=== PATIENT | female | born 1995 | race Caucasian/White ===

== ENCOUNTER 2019-10-31 10:57 | Day surgery (SDC) | payer OTHER ==
[2019-10-31] MEDS ORDERED: hydrALAZINE 20 MG/ML VIAL SLOW IVP PRN (11:11)
[2019-10-31 11:41] VITALS: BMI 33.4
[2019-10-31 12:38] LABS: #Basophils 0.1 thou/uL (0.0-0.2); #Lymphocytes 1.7 thou/uL (1.20-3.40); #Monocytes 0.3 thou/uL (0.11-0.59); #Neutrophils 5.6 thou/uL (1.40-6.50); %Basophils 0.8 % (0.0-1.0); %Eosinophils 0.5 % (0.0-10.0); %Lymphocytes 22.4 % (21.0-51.0); %Monocytes 4.2 % (0.0-10.0); %Neutrophils 72.1 % (42.0-75.0); Hemoglobin 12.4 g/dL (12.0-16.0); Mean Corpuscular HGB CONC 34.3 g/dL (32.0-36.0); Mean Corpuscular Hemoglobin 30.8 pg (27.0-31.0); Mean Corpuscular Volume 89.7 fL (78.0-98.0); Mean Platelet Volume 7.8 fL (7.4-10.4); Platelet Count 188 thou/uL (130-400); RBC Distribution Width 12.1 % (11.5-14.5); Red Blood Cell (RBC) Count 4.05 mill/uL (4.20-5.40); White Blood Cell (WBC) Count 7.7 thou/uL (4.8-10.8)
[2019-10-31 12:59] LABS: ALT (SGPT) 11 U/L (8-55); AST (SGOT) 13 U/L (5-34); Albumin 3.1 g/dL (3.5-5.0); Alkaline Phosphatase 113 U/L (40-110); Anion Gap 13 mmol/L (10-20); BUN (Urea Nitrogen) 7 mg/dL (7.0-18.7); Bilirubin, Total Less than 0.2 mg/dL (0.2-1.2); Calc. Creatinine Clearance 191 mL/min (70-130); Calcium 8.5 mg/dL (7.8-10.44); Carbon Dioxide 22 mmol/L (22-29); Chloride 106 mmol/L (98-107); Estimated GFR-MDRD Greater than 90; Globulin 2.8 g/dL (2.4-3.5); Glucose 130 mg/dL (70-105); Potassium 3.7 mmol/L (3.5-5.1); Protein, Total 5.9 g/dL (6.0-8.3); Sodium 137 mmol/L (136-145)
--- NOTE | 2019-10-31 13:25 | PDOC.LDHP ---
Labor and Delivery H&P Chief complaint: other HPI: Sent from office for blood pressure observations. She reports having elevated bps all day yesterday, but did not come to the ER. she also had a headache yesterday but does not have one now. Current gestational age (weeks): 38 Due date: 11/12/19 Dating criteria: last menstrual period Grav: 1 Para: 0 Current complications: other Current medications: pre- vitamins Allergies/Adverse Reactions: Allergies Allergy/AdvReac Type Severity Reaction Status Date / Time No Known Allergies Allergy Unverified 10/31/19 11:34 Social history: none - Physical Exam Vital signs reviewed and normal: yes General: NAD, resting Lungs: nonlabored breathing Abdomen: gravid FHT: category 1 - Vaginal Exam cm dilated: 1 Effacement: 75% Station: -3 - OB Labs Additional Labs: Laboratory Tests 10/31/19 10/31/19 12:21 12:21 WBC 7.7 RBC 4.05 L Hgb 12.4 Hct 36.3 Plt Count 188 Creatinine 0.71 AST 13 ALT 11 Alkaline Phosphatase 113 H Serum Total Protein 5.9 L Albumin 3.1 L Globulin 2.8 Albumin/Globulin Ratio 1.1 L - Assessment at 38weeks 2 days r/o GHTN and Preelampsia - Plan -: Normotensive Normal lab values Discharge home today. BP follow up early next week. ANALI visit on Sunday.
[2019-10-31 13:29] LABS: Creatinine, Urine 133.95 mg/dL (47-110)
[2019-11-01] MEDS ORDERED: FLU VACC QS2019-20(6MOS UP)/PF 60 MCG/0.5 ML SYRINGE IM ONE (12:00)
== END 2019-10-31 13:30 | disposition home or self-care (01) ==
LOC: L&D/OP 10:57
PROVIDERS: ATTEND Student in an Organized Health Care Education/Training Program
DX: O99.89 Other specified diseases and conditions complicating pregnancy, childbirth and the puerperium (principal); R03.0 Elevated blood-pressure reading, without diagnosis of hypertension; Z3A.38 38 weeks gestation of pregnancy; Z79.899 Other long term (current) drug therapy
CPT/HCPCS: 36415; 80053; 82570; 84156; 85025; 99283

== ENCOUNTER 2019-11-11 13:41 | Inpatient (IN) | payer OTHER, MEDICAID ==
[~2019-11-11 13:41] MED LIST: Bupivacaine 0.25% HCL 30 ML VIAL ONE
[2019-11-11] MEDS ORDERED: Ondansetron PF 4 MG/2 ML Vial IVP PRN (22:19)
[2019-11-11] MEDS ORDERED: Promethazine HCl 25 MG/ML VIAL IM PRN (22:19)
[2019-11-11] MEDS ORDERED: Ibuprofen 800 MG TAB PO PRN (22:19)
[2019-11-11] MEDS ORDERED: Misoprostol 200 MCG TAB PR PRN (22:19)
[2019-11-11] MEDS ORDERED: NS / Oxytocin 40 units/1000ml 1,000 ML IV PRN (22:19)
[2019-11-11] MEDS ORDERED: hydrALAZINE 20 MG/ML VIAL SLOW IVP PRN (22:19)
[2019-11-11] MEDS ORDERED: HYDROcodone/Acetaminophen 5/325 mg Tablet PO PRN ×2 (22:19)
[2019-11-11] MEDS ORDERED: Lidocaine 1% (PF) 30 ML VIAL SC PRN (22:19)
[2019-11-11] MEDS ORDERED: Methylergonovine 0.2 MG/ML VIAL IM PRN (22:19)
--- NOTE | 2019-11-11 22:25 | PDOC.LDHP ---
Labor and Delivery H&P Chief complaint: scheduled induction HPI: Patient arrived for her scheduled IOL. At 1545 she was seen at the clinic and had 5 dilipan placed into the cervix to start her induction. since around six she has been having a lot of contractions like cramps. the baby is moving normally. Current gestational age (weeks): 39 (and 6 days. ) Due date: 11/12/19 Grav: 1 Para: 0 Abnormal US findings: No Current medications: pre- vitamins, other (75 mg zoloft) Allergies/Adverse Reactions: Allergies Allergy/AdvReac Type Severity Reaction Status Date / Time No Known Allergies Allergy Unverified 11/12/19 00:25 Social history: none - Physical Exam Vital signs reviewed and normal: yes General: resting Lungs: nonlabored breathing Abdomen: gravid FHT: category 1 (+Accels, No decels. baseline is 145. Moderate variability) [place] contractions every: Irregular, uterine irritability - Vaginal Exam cm dilated: 1 Effacement: 75% Station: -2 - OB Labs Blood type: O RH: negative Antibody Screen: negative HIV: negative RPR: negative HEPSAg: negative Rubella: immune - Assessment L&D Assessment: elective induction at term - Plan Plan: admit to L&D, cervical ripening (with PO cytotec 50mcg Q3 hrs.), informed consent obtained, anesthesia consult for pain management
[2019-11-11] MEDS ORDERED: NS w/ Oxytocin 10 units 500 ML IV SCH (22:30)
[2019-11-11] MEDS: Lactated Ringer's 1,000 ML IV SCH (22:45)
[2019-11-11 22:48] VITALS: BMI 37.0
[2019-11-11] MEDS: Misoprostol 100 MCG TAB PO SCH (23:25)
[2019-11-11 23:40] LABS: Hemoglobin 13.3 g/dL (12.0-16.0); Mean Corpuscular HGB CONC 33.8 g/dL (32.0-36.0); Mean Corpuscular Hemoglobin 31.1 pg (27.0-31.0); Mean Platelet Volume 8.3 fL (7.4-10.4); Platelet Count 194 thou/uL (130-400); RBC Distribution Width 12.3 % (11.5-14.5); Red Blood Cell (RBC) Count 4.29 mill/uL (4.20-5.40); White Blood Cell (WBC) Count 9.7 thou/uL (4.8-10.8)
[2019-11-11] MEDS ORDERED: Zolpidem Tartrate 5 MG TAB PO SCH (23:45)
[2019-11-12 00:20] LABS: HBSAg Index 0.13 S/CO (0-0.99); Hep B Surf Ag Non-Reactive S/CO (NonReactive); Syphilis Antibody Nonreactive (Nonreactive); Syphilis Antibody Index 0.03 S/CO (<1.00 Non-Reactive)
[2019-11-12] MEDS: Misoprostol 100 MCG TAB PO SCH ×3 (02:41→20:32)
[2019-11-12] MEDS: Butorphanol Tartrate 1 MG/ML VIAL SLOW IVP PRN ×2 (04:10→08:30)
[2019-11-12] MEDS: Lactated Ringer's 1,000 ML IV SCH ×2 (06:16→17:34)
[2019-11-12] MEDS ORDERED: Fentanyl 4 mcg/Bup 0.1% Cadd 100 ML ONE ×2 (07:34→15:33)
[2019-11-12] MEDS ORDERED: Ondansetron PF 4 MG/2 ML Vial IVP PRN (09:34)
[2019-11-12] MEDS ORDERED: Lactated Ringer's 500 ML IV PRN (09:34)
[2019-11-12] MEDS ORDERED: ePHEDrine/0.9% NaCl/PF SYRINGE 50 mg/10 ml SLOW IVP PRN (09:34)
[2019-11-12] MEDS ORDERED: Acetaminophen 325 MG TAB PO PRN (09:34)
[2019-11-12] MEDS ORDERED: Naloxone HCl 0.4 mg/ml Vial IVP PRN ×2 (09:34)
[2019-11-12] MEDS ORDERED: Promethazine HCl 25 MG/ML VIAL IM PRN (09:34)
[2019-11-12] MEDS ORDERED: diphenhydrAMINE 50 MG/ML VIAL IVP PRN (09:34)
[2019-11-12] MEDS ORDERED: Fentanyl 4 mcg/Bupivacaine 0.1% Cassette 100 ML EPIDURAL SCH (09:45)
[2019-11-12] MEDS ORDERED: Communication Order-Pharmacy FS PRN (09:45)
[2019-11-12] MEDS ORDERED: Lidocaine 1.5%/Epinephrine 1:200,000 5 ML AMPUL IJ ONE (13:55)
--- NOTE | 2019-11-12 14:10 | PDOC.LDPN ---
Labor & Delivery Progress Note - Subjective Subjective: painful contractions (Having cramping after 3 attempted epidurals) - Objective Vital signs reviewed and normal: yes General: NAD Uterine fundus: non tender Dilation: 4 Effacement: 75% Station: -1 FHT: category 1 AROM: clear fluid IUPC placed: yes - Assessment (1) Primigravida Code(s): Z34.00 - ENCNTR FOR SUPRVSN OF NORMAL FIRST , UNSP TRIMESTER Current Visit: Yes Status: Acute (2) 40 weeks gestation of Code(s): Z3A.40 - 40 WEEKS GESTATION OF Current Visit: Yes Status : Acute Plan: other (Immediately after AROM and IUPC, MVUs were 240. Instructed RN to decrease pitocin to 4mu. 6 contractions for 10 minutes. )
[2019-11-12] MEDS ORDERED: NS / Oxytocin 40 units/1000ml 1,000 ML ONE (14:27)
[2019-11-12] MEDS ORDERED: Lidocaine 1% (PF) 30 ML VIAL ONE (14:27)
--- NOTE | 2019-11-12 16:31 | PDOC.OPDEL ---
OB Operative/Delivery Note Delivery Dr/Surgeon: Karol De La Cruz Pre-Delivery Diagnosis: active labor, elective induction Procedure/Post Delivery Dx: spontaneous vaginal delivery Weeks gestation: 40 Anesthesia: epidural - Findings A Sex: female - 1 min: 8 - 5 min: 9 - Additional Findings/Plan Placenta delivered: spontaneous Repaired Obstetrical Laceration: vaginal (1st.) Estimated blood loss: 500mL Compilations/Other Findings: Nuchal and body cord Post delivery plan: routine recovery
[2019-11-12] MEDS ORDERED: CEFAZOLIN 2 GM in Premix Bag 1 BAG IVPB SCH (16:45)
[2019-11-12] MEDS ORDERED: Bisacodyl 10 MG SUPP PR PRN (18:52)
[2019-11-12] MEDS ORDERED: Misoprostol 200 MCG TAB VAG PRN (18:52)
[2019-11-12] MEDS ORDERED: HYDROcodone/Acetaminophen 5/325 mg Tablet PO PRN ×2 (18:52)
[2019-11-12] MEDS ORDERED: NS / Oxytocin 40 units/1000ml 1,000 ML IV SCH (18:52)
[2019-11-12] MEDS ORDERED: Milk Of Magnesia 30 ML UDCUP PO PRN (18:52)
[2019-11-12] MEDS ORDERED: Benzocaine-Menthol 82.5 ML CAN TOP PRN (18:52)
[2019-11-12] MEDS ORDERED: hydrALAZINE 20 MG/ML VIAL SLOW IVP PRN (18:52)
[2019-11-12] MEDS ORDERED: Ferrous Sulfate 325 MG TAB PO SCH (19:15)
[2019-11-12] MEDS: Docusate Calcium (SURFAK) 240 MG CAP PO SCH (20:49)
[2019-11-12] MEDS ORDERED: Ibuprofen 800 MG TAB PO SCH (22:00)
[2019-11-13] MEDS: Ibuprofen 800 MG TAB PO SCH ×4 (00:17→23:29)
[2019-11-13] MEDS ORDERED: Adacel (T-DAP) 0.5 ML SYRINGE IM ONE (09:00)
[2019-11-13] MEDS: Prenatal Vitamin 1 TAB PO SCH (09:03)
[2019-11-13] MEDS: Docusate Calcium (SURFAK) 240 MG CAP PO SCH ×2 (09:03→23:29)
[2019-11-13] MEDS: Ferrous Sulfate 325 MG TAB PO SCH ×2 (09:04→15:50)
--- NOTE | 2019-11-13 10:22 | PDOC.PP ---
Post Progress Note Post Day #: 1 Subjective: Patient is doing well. She is formula feeding. Her only complaint is having a really bad headache, which is much worse when she is sitting upright. She still has the epidural catheter in and the IV saline lock. PO intake tolerated: yes Flatus: yes Ambulation: yes Vital Signs (12 hours) Temp Pulse Resp BP Pulse Ox 11/13/19 08:17 98.8 F 92 20 124/62 97 11/13/19 04:00 98.4 F 89 16 122/80 96 11/13/19 00:00 99.5 F 83 16 132/64 97 Weight Weight 244 lb - Physical Examination General: NAD Respiratory: non-labored breathing Abdominal: lochia (minimal) Extremities: negative homans (B) Skin: no rash Neurological: no gross focal deficits Psychiatric: A&Ox3, normal affect Result Diagrams: 11/11/19 23:01 Additional Labs: Post Labs Blood Type O NEGATIVE 11/11/19 23:01 Hep Bs Antigen Non-Reactive S/CO (NonReactive) 11/11/19 23:01 (1) Primigravida Code(s): Z34.00 - ENCNTR FOR SUPRVSN OF NORMAL FIRST , UNSP TRIMESTER Status: Acute (2) 40 weeks gestation of Code(s): Z3A.40 - 40 WEEKS GESTATION OF Status: Acute - Assessment/Plan A: G1 now P1 sp following Elective IOL at term. Spinal headache P: Routine care Follow up with Anesthesia to see if she is candidate for blood patch.
[2019-11-14] MEDS: Ferrous Sulfate 325 MG TAB PO SCH (08:06)
[2019-11-14] MEDS: Docusate Calcium (SURFAK) 240 MG CAP PO SCH (08:43)
[2019-11-14] MEDS: Ibuprofen 800 MG TAB PO SCH (08:43)
[2019-11-14] MEDS: Prenatal Vitamin 1 TAB PO SCH (08:44)
[2019-11-14 11:59] VITALS: BP 122/66; TEMP 99
== END 2019-11-14 13:56 | disposition home or self-care (01) | DRG 807 ==
LOC: L&D 21:42 → 3SE 11-12 19:57
PROVIDERS: ADMIT Obstetrics & Gynecology; ATTEND Obstetrics & Gynecology
PROC: 10907ZC Drainage of Amniotic Fluid, Therapeutic from Products of Conception, Via Natural or Artificial Opening (ICD-10-PCS; principal; 2019-11-12)
PROC: 10E0XZZ Delivery of Products of Conception, External Approach (ICD-10-PCS; 2019-11-12)
PROC: 10H07YZ Insertion of Other Device into Products of Conception, Via Natural or Artificial Opening (ICD-10-PCS; 2019-11-12)
PROC: 3E033VJ Introduction of Other Hormone into Peripheral Vein, Percutaneous Approach (ICD-10-PCS; 2019-11-12)
DX: O26.893 Other specified pregnancy related conditions, third trimester (principal); Z37.0 Single live birth; O69.81X0 Labor and delivery complicated by cord around neck, without compression, not applicable or unspecified; O70.0 First degree perineal laceration during delivery; Z3A.39 39 weeks gestation of pregnancy; Z67.41 Type O blood, Rh negative; O89.4 Spinal and epidural anesthesia-induced headache during the puerperium
CPT/HCPCS: 36415; 62272; 85027; 85461; 86780; 86850; 86900; 86901; 87340; 90384; 96372; J0595; J0690; J2001; J2590; J3490; S0020